=== PATIENT | female | born 1995 | race Caucasian/White ===

== ENCOUNTER 2017-09-30 12:29 | Emergency (ER) | payer OTHER ==
[~2017-09-30] VITALS: Ht 162.6 cm; Wt 88.4 kg
[~2017-09-30 12:29] MED LIST: Z.0.BCPILL PO; ZOFR4TAB3 SL
[2017-09-30 12:33] VITALS: BP 151/88; PULSE 89; RESP 16; TEMP 99.2; O2SAT 100
[2017-09-30 12:45] LABS: BILIRUBIN, URINE NEG (NEG); BLOOD, URINE NEG (NEG); GLUCOSE,URINE NEG (NEG); KETONE, URINE NEG (NEG); NITRITE,URINE NEG (NEG); PH, URINE 5.5 (5.0-8.5); URINE COLOR YELLOW (YELLW/STRAW); URINE LEUKOCYTE ESTERASE NEG (NEG)
[2017-09-30 12:54] LABS: RBC, URINE 0-3 /hpf (0-3); SQUAMOUS EPITHELIAL CELL URINE 0-5 /hpf (0-5); WBC, URINE 0-2 /hpf (0-5)
--- NOTE | 2017-09-30 13:35 | PD ---
HPI Chief Complaint: [facility] [employer] Problem/Complaint Time Seen by Provider: 13:09 Travel History International Travel<30 days: No Contact w/Intl Traveler<30days: No Traveled to known affect area: No History of Present Illness HPI 21yo F with no PMH presents to the ED with c/o vaginal bleeding for 2.5 weeks. Denies any fever, chest pain, sob, n/v, abdominal pain, vaginal discharge, dysuria, hematuria, focal weakness or numbness. Pt called her insurance and was told to come to the ED. Pt has appointment with steel pourer next week. Said her vaginal bleeding is not bad, maybe 1 pad a day. PFSH Past Medical History Asthma: Yes Diminished Hearing: No Neurologic: Yes (BELLS PALSY AT AGE 8YRS) Immunizations Current: Yes Tetanus Vaccination: < 5 Years Influenza Vaccination: No ?: Unknown Past Surgical History Surgical History: No Previous Surgery Social History Alcohol Use: No Tobacco Use: No Substance Use: No Allergies-Medications (Allergen,Severity, Reaction): Coded Allergies: No Known Allergies (Unverified Adverse Reaction, Unknown, 09/30/17) Reported Meds & Prescriptions Reported Meds & Active Scripts Active No Active Prescriptions or Reported Medications Review of Systems Except as stated in HPI: all other systems reviewed are Neg Physical Exam Narrative GENERAL: 21yo F not in distress. SKIN: Focused skin assessment warm/dry. HEAD: Atraumatic. Normocephalic. CARDIOVASCULAR: Regular rate and rhythm. No murmur appreciated. RESPIRATORY: No accessory muscle use. Clear to auscultation. Breath sounds equal bilaterally. GASTROINTESTINAL: Abdomen soft, non-tender, nondistended. No rebound tenderness or guarding. PELVIC: Refused. MUSCULOSKELETAL: No obvious deformities. No clubbing. No cyanosis. No edema. NEUROLOGICAL: Awake and alert. No obvious cranial nerve deficits. Motor grossly within normal limits. Normal speech. PSYCHIATRIC: Appropriate mood and affect; insight and judgment normal. Data Data Last Documented VS Vital Signs Date Time Temp Pulse Resp B/P (MAP) Pulse Ox O2 Delivery O2 Flow Rate FiO2 09/30/17 12:33 99.2 89 16 151/88 (109) 100 Orders Orders Urinalysis - C+S If Indicated (09/30/17 12:35) Ed Urine Pregnancytest Poc (09/30/17 12:35) Labs Laboratory Tests Test 09/30/17 12:35 Urine Collection Type CLEAN CATCH Urine Color YELLOW Urine Turbidity CLEAR Urine pH 5.5 Urine Specific [place] 1.020 Urine Protein NEG mg/dL Urine Glucose (UA) NEG mg/dL Urine Ketones NEG mg/dL Urine Occult Blood NEG Urine Nitrite NEG Urine Bilirubin NEG Urine Urobilinogen 0.2 MG/DL Urine Leukocyte Esterase NEG Urine RBC 0-3 /hpf Urine WBC 0-2 /hpf Urine Squamous Epithelial Cells 0-5 /hpf Microscopic Urinalysis Comment CULT NOT INDICATED Urine Collection Time 12:35 [facility] Medical Decision Making Medical Screen Exam Complete: Yes Emergency Medical Condition: Yes Differential Diagnosis Metromenorrhagia vs. vs. abnormal uterine bleeding Narrative Course 21yo F with abnormal uterine bleeding for 2.5 weeks. Vital signs stable. UA negative. Urine negative. Pt is refusing pelvic exam. Said she is going to [facility] and whether do it there. She said she was told to come to ED so that is why she is here. She is a healthy 21yo F who has appointment with [facility] next week. Will have pt follow up with [facility]. Return precautions given. Diagnosis Primary Impression: Abnormal uterine bleeding Patient Instructions: General Instructions Departure Forms: Tests/Procedures Additional Instructions: Please follow up with your steel pourer next week. Return to the ED if symptoms worsen. Med/Other Pt SpecificInfo: No Change to Meds Scripts No Active Prescriptions or Reported Meds Disposition: 01 DISCHARGE HOME Condition: Stable Michelle Navarro DO September 30, 2017 13:35
[2017-09-30 13:57] VITALS: BP 123/67
== END 2017-09-30 14:38 | disposition home or self-care (01) ==
LOC: PHED 12:29
DX: N93.9 Abnormal uterine and vaginal bleeding, unspecified (principal); J45.909 Unspecified asthma, uncomplicated
CPT/HCPCS: 81001; 84703; 99283